=== PATIENT | male | born 1975 | race Caucasian/White ===

== ENCOUNTER 2020-09-21 01:47 | Emergency (ER) | payer OTHER ==
[~2020-09-21] VITALS: Ht 180.3 cm; Wt 136.1 kg
[2020-09-21] MEDS ORDERED: [UNRECOGNIZED DRUG - REMARK] (02:01)
[2020-09-21 02:32] LABS: ABSOLUTE NEUTROPHILS 5.8 thou/uL (1.4-8.2); BASOPHILS 0.8 % (0.0-2.0); EOSINOPHILS 1.5 % (0.0-3.0); HEMATOCRIT 52.8 % (42.0-52.0); LYMPHOCYTES 21.4 % (24.0-44.0); MCH 31.8 pg (26.0-34.0); MCV 93.6 fL (80.0-100.0); MONOCYTES 10.6 % (1.0-8.0); PLATELET COUNT 141 thou/uL (150-400); POLYS 65.7 % (36.0-66.0); RBC 5.64 mil/uL (4.50-6.00); RDW 13.4 % (10.5-14.5); WBC 8.8 thou/uL (4.0-11.0)
[2020-09-21 02:33] LABS: ANION GAP 6 mmol/L (7-16); BUN 19 mg/dL (7-18); CALCIUM 8.9 mg/dL (8.5-10.1); CHLORIDE 103 mmol/L (98-107); CO2 32 mmol/L (21-32); CREATININE 1.2 mg/dL (0.7-1.3); GLUCOSE 143 mg/dL (74-106); POTASSIUM 4.2 mmol/L (3.5-5.1); SODIUM 141 mmol/L (136-145)
[2020-09-21 02:43] LABS: ALBUMIN 3.4 g/dL (3.4-5.0); LIPASE 62 U/L (73-393); SGOT 18 U/L (15-37); SGPT 26 U/L (30-65); TOTAL BILIRUBIN 0.5 mg/dL (0.2-1.0); TOTAL PROTEIN 6.8 g/dL (6.4-8.2); TROPONIN-I <0.06 ng/mL (<0.06)
[2020-09-21 03:09] LABS: URINE BILIRUBIN NEGATIVE (Negative); URINE BLOOD TRACE (Negative); URINE CLARITY CLEAR; URINE COLOR YELLOW; URINE GLUCOSE-RANDOM* NEGATIVE (Negative); URINE KETONES NEGATIVE (Negative); URINE LEUKOCYTES-REFLEX NEGATIVE (Negative); URINE NITRITE-REFLEX NEGATIVE (Negative); URINE PROTEIN (DIPSTICK) 1+ (Negative); URINE SPECIFIC GRAVITY >= 1.030 (1.005-1.035)
[2020-09-21 03:29] LABS: BACTERIA-REFLEX None Seen /HPF (None Seen); CRYSTALS None Seen /LPF (None Seen); HYALINE CASTS 0-3 Few /LPF (None Seen); MUCUS None Seen strn/LPF (None Seen); SQUAMOUS 0-3 Few /LPF (0-3); URINE RBC 0-2 Rare /HPF (0-2); URINE WBC-REFLEX None Seen /HPF (0-5)
[2020-09-21] MEDS ORDERED: TRAMADOL 50 MG50 MG PO (05:32)
[2020-09-21] MEDS ORDERED: NAPROSYN500 MG PO (05:32)
[2020-09-21 05:53] VITALS: BP 168/69
--- NOTE | 2020-09-21 07:50 | EKG ---
[facility] [place] [address] ELECTROCARDIOGRAM REPORT Name: JONATHAN PENDLETON Room [facility] [id number] Admission: 09/21/20 Attend Phys: Discharge: 09/21/20 Date of : 73 Report #: [id number] THIS REPORT FOR: cc: NO FAMILY PHYSICIAN or PCP NO FAMILY PHYSICIAN or PCP Marko Baxter MD [facility] ~ THIS REPORT FOR: //name// [facility] ED Test Date: 2020-09-21 Test Time: 01:57:32 Pat Name: JONATHAN PENDLETON Department: Room: Gender: Molding Room Supervisor: [facility] : 1975 Requested By: Warner Stone Order Number: [id number] MD: Marko Baxter Measurements Intervals [place] Rate: 75 P: -7 ME: 135 QRS: -18 QRSD: 109 T: 52 QT: 406 QTc: 454 Interpretive Statements Sinus rhythm Borderline left axis deviation Possible anteroseptal infarct, old No previous ECG available for comparison Electronically Signed On 09-21-2020 7:49:47 [employer] by Marko Baxter [email or web address] <ELECTRONICALLY SIGNED> By: Marko Baxter MD, FACC 09/21/20 [id number] [id number] Marko Baxter MD, [facility] /EPI
== END 2020-09-21 06:00 | disposition home or self-care (01) ==
LOC: ER 01:47
PROVIDERS: Emergency Medicine
DX: R10.11 Right upper quadrant pain (principal); F17.210 Nicotine dependence, cigarettes, uncomplicated